=== PATIENT | female | born 1955 | race Caucasian/White ===

== ENCOUNTER 2020-11-30 07:52 | Outpatient (REF) | payer MEDICARE, OTHER, SELFPAY ==
[2020-11-30 11:22] LABS: Alanine Aminotransferase 26 U/L (0-31); Albumin Level 4.8 g/dL (3.5-5.0); Alkaline Phosphatase 65 U/L (39-117); Anion Gap 14 (12-20); Aspartate Amino Transferase 24 U/L (5-31); Bilirubin Total 0.5 mg/dL (0.0-1.0); Blood Urea Nitrogen 12 mg/dL (9-16); Calcium 9.7 mg/dL (8.4-10.2); Carbon Dioxide 28 mmol/L (22-29); Chloride 106 mmol/L (96-108); Cholesterol 149 mg/dL; Estimated Glomerular Filt Rate > 60; Glucose Fasting 89 mg/dL (60-99); HDL Cholesterol 34 mg/dL; LDL Cholesterol Calculated 73 mg/dl; Potassium 4.3 mmol/L (3.3-5.1); Sodium 144 mmol/L (135-145); Triglycerides 210 mg/dL
[2020-11-30 11:47] LABS: Free T4 (Free Thyroxine) 1.25 ng/dL (0.71-1.85); Thyroid Stimulating Hormone 1.14 uIU/mL (0.32-4.0)
== END 2020-11-30 07:53 | disposition home or self-care (01) ==
LOC: HO.MANLR 07:52
PROVIDERS: PCP Internal Medicine; Visit Provider Physician Assistant
DX: E03.9 Hypothyroidism, unspecified (principal); E78.5 Hyperlipidemia, unspecified; I10 Essential (primary) hypertension
CPT/HCPCS: 36415; 80053; 80061; 84439; 84443

== ENCOUNTER 2020-12-27 10:36 | Outpatient (REF) | payer MEDICARE, OTHER, SELFPAY ==
[2020-12-27 14:14] LABS: SARS COV2 IgG Negative (Negative)
== END 2020-12-27 10:37 | disposition home or self-care (01) ==
LOC: HO.MANLDS 10:36
PROVIDERS: PCP Internal Medicine; Visit Provider Physician Assistant
DX: Z20.822 Contact with and (suspected) exposure to COVID-19 (principal)
CPT/HCPCS: 36415; 86769